=== PATIENT | male | born 1965 | race Caucasian/White ===

== ENCOUNTER 2023-03-15 11:53 | Day surgery (SDC) | payer BC, SELFPAY ==
[2023-03-13 15:31] VITALS: BMI 39.3
--- NOTE | 2023-03-14 09:46 | P.CONAN_ITS ---
Documented by User: Malaika Harden NP 03/14/23 09:47 HPI - Anesthesia Eval Consult details Narrative: 57yo M for Upper Endoscopy [facility] Past Medical History Medical History Chest pain Fatty liver GERD (gastroesophageal reflux disease) HTN (hypertension) Surgical History Surgical History (Updated 03/15/23 @ 13:03 by Gladis Martinez MD) Hx of endoscopy H/O colonoscopy Social History Social History Household Members: Spouse Patient Tobacco Use Status: Former Tobacco user Use of substances other than those prescribed or required for medical reasons: No Are you DNR?: No Advance Directives: No Advance Directives Information Provided: Yes Meds Allergies Allergy/AdvReac Type Severity Reaction Status Date / Time No Known Allergies Allergy Verified 03/13/23 15:31 Home Medications Medication Instructions Recorded Confirmed Last Taken Type amlodipine 5 mg-benazepril 10 mg 1 cap PO DAILY 03/13/23 03/13/23 Unknown History capsule losartan 100 mg tablet 100 mg PO DAILY 03/13/23 03/13/23 Unknown History metoprolol succinate 25 mg 25 mg PO DAILY 03/13/23 03/13/23 Unknown History tablet,extended release 24 hr omeprazole 20 mg capsule,delayed 20 mg PO DAILY 03/13/23 03/13/23 Unknown History release Exam Height,Weight and Vital Signs: Height 5 ft 9 in Weight 120.656 kg Assessment and Plan Assessment Anesthesia Assessment: Chart Reviewed Documented by User: Gladis Martinez MD 03/15/23 13:16 [facility] Active Problems Active Problems: HTN GERD Increased BMI 39.2 Denies BERTIN Past Medical History Medical History Chest pain Fatty liver GERD (gastroesophageal reflux disease) HTN (hypertension) Family History Family history of problems with anesthesia: No Surgical History Surgical History (Updated 03/15/23 @ 13:03 by Gladis Martinez MD) Hx of endoscopy H/O colonoscopy History of Problems with Anesthesia: No Social History Social History Household Members: Spouse Patient Tobacco Use Status: Former Tobacco user Use of substances other than those prescribed or required for medical reasons: No Are you DNR?: No Advance Directives: No Advance Directives Information Provided: Yes Meds Allergies Allergy/AdvReac Type Severity Reaction Status Date / Time No Known Allergies Allergy Verified 03/13/23 15:31 Home Medications Medication Instructions Recorded Confirmed Last Taken Type amlodipine 5 mg-benazepril 10 mg 1 cap PO DAILY 03/13/23 03/13/23 Unknown History capsule losartan 100 mg tablet 100 mg PO DAILY 03/13/23 03/13/23 Unknown History metoprolol succinate 25 mg 25 mg PO DAILY 03/13/23 03/13/23 Unknown History tablet,extended release 24 hr omeprazole 20 mg capsule,delayed 20 mg PO DAILY 03/13/23 03/13/23 Unknown History release Exam Height,Weight and Vital Signs: Height 5 ft 9 in Weight 120.656 kg Vital Signs Temp Pulse Resp BP Pulse Ox O2 Del Method 03/15/23 12:30 99.0 F 90 20 131/70 97 Room Air Airway Mallampati Class: III TM Dist: >3cm Neck ROM: Full Loose/Missing/Broken Teeth: No (Denies broken, loose, missing teeth) Heart: RRR. Loud Lungs: CTAB Assessment and Plan Assessment Anesthesia Assessment: Anesthesia Plan Discussed Final Anesthetic Review Family History of Problems with Anesthesia: No History of Problems with Anesthesia: No NPO: Yes ASA Class: III Final Preanesthetic Review: No Changes in Pt Med Stat, Meds/Allgs Chart Reviewed, Consent Obtained/Reviewed and Anes Risks/Benef Reviewed Patient Risk: Intermediate Procedure Risk: Low Assessment/Block/Sedation in SS: Assess/Block/Sedation-SS Anesthetic Plan Anesthetic Plan: MAC: Disposition: Standard PACU Documented by User: Saroj Oliveira MD 03/16/23 09:12 [facility] Past Medical History Medical History Chest pain Fatty liver GERD (gastroesophageal reflux disease) HTN (hypertension) Surgical History Surgical History (Updated 03/15/23 @ 13:03 by Gladis Martinez MD) Hx of endoscopy H/O colonoscopy Social History Social History Household Members: Spouse Patient Tobacco Use Status: Former Tobacco user Use of substances other than those prescribed or required for medical reasons: No Are you DNR?: No Advance Directives: No Advance Directives Information Provided: Yes Meds Allergies Allergy/AdvReac Type Severity Reaction Status Date / Time No Known Allergies Allergy Verified 03/13/23 15:31 Home Medications Medication Instructions Recorded Confirmed Last Taken Type amlodipine 5 mg-benazepril 10 mg 1 cap PO DAILY 03/13/23 03/13/23 Unknown History capsule losartan 100 mg tablet 100 mg PO DAILY 03/13/23 03/13/23 Unknown History metoprolol succinate 25 mg 25 mg PO DAILY 03/13/23 03/13/23 Unknown History tablet,extended release 24 hr omeprazole 20 mg capsule,delayed 20 mg PO DAILY 03/13/23 03/13/23 Unknown History release Assessment and Plan Anesthetic Plan Anesthetic Plan: Agree w/ Assess. and Plan
[2023-03-15 12:09] VITALS: BMI 39.2
[2023-03-15 12:30] VITALS: BP 131/70; PULSE 90; RESP 20; TEMP 37.2; O2SAT 97
[2023-03-15 12:45] VITALS: BMI 39.2
[2023-03-15] MEDS: Lactated Ringers 1,000 ML 100 ML IVCONT (12:45)
--- NOTE | 2023-03-15 13:07 | MHC.SHP ---
Pre-Procedural Eval Section A Date of Service: 03/15/23 The patient is an INPATIENT: No Changes since office visit: No Cold of Flu in the past 2 weeks, No New Medical Problems, No Changes in Medication and No Patient answered all questions The History & Physical has been completed within 30 days and I have reviewed it.: Yes Section B Chief Complaint: Gastro-esophageal reflux disease without esophagit Allergies: Allergies Allergy/AdvReac Type Severity Reaction Status Date / Time No Known Allergies Allergy Verified 03/13/23 15:31 Plan I have reviewed the history and physical and performed a pertinent physical examination on my patient. No changes have occurred unless specified. Time Spent With Patient Time: Total time managing care of this patient today ____ minutes.
[2023-03-15 13:41] VITALS: BP 114/61; PULSE 94; RESP 20; TEMP 36.8; O2SAT 91
[2023-03-15 13:56] VITALS: BP 131/73; PULSE 89; RESP 20; O2SAT 97
[2023-03-15 14:09] VITALS: BP 120/60; PULSE 77; RESP 20; TEMP 36.9; O2SAT 96
--- NOTE | 2023-03-15 19:20 | OP_ITS ---
DATE OF SERVICE: 03/15/2023 SURGEON: Helio Lin MD INDICATIONS: Gastroesophageal reflux disease. PREOPERATIVE DIAGNOSIS: POSTOPERATIVE DIAGNOSIS: PROCEDURE PERFORMED: Upper endoscopy with biopsy. ESTIMATED BLOOD LOSS: COMPLICATIONS: ANESTHESIA: Monitored anesthesia care. ASSISTANTS: SPECIMENS: DESCRIPTION OF PROCEDURE: A history and physical was performed. The risks and benefits of the procedure were explained to the patient. Informed consent was obtained. The patient was placed in the left lateral decubitus position. The Olympus video gastroscope was introduced into the esophagus, stomach, and duodenum. Examination was performed. The scope was removed. He tolerated the procedure well and was returned to the recovery area in stable condition. FINDINGS: Esophagus: The esophagus showed no esophagitis. No varices were present. There was an irregular EG junction, which was biopsied. Stomach: The stomach showed no evidence of masses or ulcers. There were several benign-appearing polyps in the body and fundus of the stomach, measuring less than 5 mm. Antral biopsies were obtained to rule out H pylori. Duodenum: The bulb and second portion were normal. IMPRESSION: Gastroesophageal reflux disease. RECOMMENDATION: Follow up the biopsy results. MD JORDIN Price/NHAN / [id number]
== END 2023-03-15 14:35 | disposition home or self-care (01) ==
PROVIDERS: PCP Nurse Practitioner Family; Visit Provider Internal Medicine Gastroenterology
PROC: 0DJ08ZZ Inspection of Upper Intestinal Tract, Via Natural or Artificial Opening Endoscopic (ICD-10-PCS; CPT 43235; principal; 2023-03-15 13:00)
DX: K22.10 Ulcer of esophagus without bleeding (principal); D71 Functional disorders of polymorphonuclear neutrophils; K21.9 Gastro-esophageal reflux disease without esophagitis; K22.89 Other specified disease of esophagus; R07.0 Pain in throat; K76.0 Fatty (change of) liver, not elsewhere classified; I10 Essential (primary) hypertension; Z79.899 Other long term (current) drug therapy
CPT/HCPCS: 43239; 88305; 88342; J2250; J2704

== ENCOUNTER 2023-12-06 07:44 | Outpatient (REF) | payer BC, SELFPAY ==
--- NOTE | ~2023-12-06 | CT_ITS ---
EXAMINATION: CT ABDOMEN AND PELVIS WITH CONTRAST CLINICAL INFORMATION: Abnormal abdominal ultrasound COMPARISON: None available. TECHNIQUE: Multidetector volumetric images were obtained from the superior aspect of the liver through the pubic symphysis following administration 85 mL of Omnipaque 350 intravenous contrast. Sagittal and coronal reformatted images were obtained on the technologist's workstation. Oral contrast: Yes This CT examination was performed using dose optimization techniques as appropriate, variously including the following: *Automated exposure control *Adjustment of mA and/or kV according to patient size (this includes techniques or standardized protocols for targeted exams where dose is matched to indication/reason for exam; i.e. extremities or head) *Use of iterative reconstruction technique DLP: 803 mGy-cm FINDINGS: LUNG BASES: The visualized lung bases are unremarkable. LIVER, GALLBLADDER, AND BILIARY TREE: Liver is decreased in density consistent with hepatic steatosis. There is a small calcified stone within the gallbladder. Gallbladder is nondistended. No focal wall thickening, inflammatory stranding PANCREAS: Unremarkable. SPLEEN: Unremarkable. ADRENAL GLANDS: Unremarkable. KIDNEYS AND URETERS: The kidneys are normal in size, shape, and attenuation. No hydronephrosis, hydroureter, or calculi seen. No perinephric stranding. BLADDER: Unremarkable. GASTROINTESTINAL TRACT: The small and large bowel are unremarkable. The appendix is unremarkable. ABDOMINAL WALL: No significant hernia is appreciated. LYMPH NODES: Normal. VASCULAR: Unremarkable. PELVIC VISCERA: Unremarkable. OSSEOUS STRUCTURES: Unremarkable. CT/CT abdomen pelvis w IV con IMPRESSION: 1. No acute process. 2. Hepatic steatosis. 3. Cholelithiasis. Electronically signed by: Obi Sexton MD 12/12/2023 06:18 PM EDT
[2023-12-06] MEDS: Barium Sulfate Oral (Mocha) 450 ML ORAL.SUSP 900 ML PO (10:22)
[2023-12-06] MEDS: iohexoL 350 MG/ML 100 ML INFUS..BTL IV (10:22)
[2023-12-06 14:16] LABS: Creatinine POC 0.8 mg/dL (0.5-1.4); GFR POC > 60
== END 2023-12-06 07:45 | disposition home or self-care (01) ==
LOC: HO.CT 07:44
PROVIDERS: PCP Nurse Practitioner Family; Visit Provider Internal Medicine Gastroenterology
DX: R93.5 Abnormal findings on diagnostic imaging of other abdominal regions, including retroperitoneum (principal)
CPT/HCPCS: 74177; 82565; Q9967

== ENCOUNTER 2024-02-23 06:18 | Day surgery (SDC) | payer BC, SELFPAY ==
[2024-02-21 10:36] VITALS: BMI 39.6
[2024-02-23 06:34] VITALS: BMI 38.2
[2024-02-23 06:39] VITALS: BP 151/81; PULSE 96; RESP 15; TEMP 36.5; O2SAT 93
[2024-02-23] MEDS: Lactated Ringers 1,000 ML 100 ML IVCONT (06:53)
--- NOTE | 2024-02-23 07:13 | P.HPSUR_ITS ---
Pre-Procedural Eval Section A - 24 Hr Update-Section A only Date of Service: 02/23/24 Section B - Complete if H&P > 30 days Chief Complaint: Encounter for screening for malignant neoplasm of Details of Present Illness: see H&P no changes Relevant Family History (Specify if Yes): No Relevant Social History: None Present Medications: see Short Stay Collaborative assessment Medical History: No relevant PMH History of Previous Operations: No relevant previous surgery Allergies: Allergies Allergy/AdvReac Type Severity Reaction Status Date / Time No Known Allergies Allergy Verified 02/23/24 06:32 Review of Systems Sugical H&P ROS: Negative: Constitution, Cardiovascular, Respiratory, Neurological, Psychiatric, Hem-Onc, Allergic/Immunologic, Gastrointestinal, Genitourinary, Musculoskeletal, Integumentary, Endocrine and Eyes/Ears/No se/Throat Exam Surgical H&P Exam: Normal: HEENT, Normal: Heart, Normal: Lungs, Normal: Extremities, Normal: Abdomen, Normal: Skin and Normal: Neurological Plan Diagnosis/Plan: Unchanged I have reviewed the history and physical and performed a pertinent physical examination on my patient. No changes have occurred unless specified. Time Spent With Patient Time: Total time managing care of this patient today ____ minutes.
--- NOTE | 2024-02-23 07:25 | HO.ANESPROP2 ---
Documented by User: Malaika Harden NP 02/22/24 10:11 HPI - Anesthesia Eval Consult details Narrative: 58yo M for Colonoscopy [facility] Past Medical History Medical History Fatty liver GERD (gastroesophageal reflux disease) HTN (hypertension) Family History Family history of problems with anesthesia: No Surgical History Surgical History Hx of endoscopy H/O colonoscopy History of Problems with Anesthesia: No Social History Social History (Updated 02/21/24 @ 10:30 by Portia Strauss RN) Household Members: Spouse Patient Tobacco Use Status: Never used Tobacco Tobacco use type: Cigarette Use of substances other than those prescribed or required for medical reasons: No Are you DNR?: No Advance Directives: No Advance Directives Information Provided: Yes Recently lost weight without trying: No Meds Allergies Allergy/AdvReac Type Severity Reaction Status Date / Time No Known Allergies Allergy Verified 02/23/24 06:32 Home Medications ?Medication ?Instructions ?Recorded ?Confirmed ?Last Taken ?Type amlodipine 5 mg-benazepril 10 mg 1 cap PO DAILY 03/13/23 02/23/24 Unknown History capsule losartan 100 mg tablet 100 mg PO DAILY 03/13/23 02/23/24 Unknown History metoprolol succinate 25 mg 25 mg PO DAILY 03/13/23 02/23/24 Unknown History tablet,extended release 24 hr omeprazole 20 mg capsule,delayed 20 mg PO DAILY 03/13/23 02/23/24 Unknown History release evolocumab 140 mg/mL subcutaneous 140 mg subcut Q2W 02/21/24 02/23/24 Unknown History pen injector (Kasia Cast) Exam Height,Weight and Vital Signs: Height 5 ft 9 in Weight 121.563 kg Assessment and Plan Assessment Anesthesia Assessment: Chart Reviewed Final Anesthetic Review Family History of Problems with Anesthesia: No History of Problems with Anesthesia: No Documented by User: Katelynn Schwartz DO 02/23/24 07:35 [facility] Past Medical History Medical History Fatty liver GERD (gastroesophageal reflux disease) HTN (hypertension) Family History Family history of problems with anesthesia: No Surgical History Surgical History Hx of endoscopy H/O colonoscopy History of Problems with Anesthesia: No Social History Social History (Updated 02/21/24 @ 10:30 by Portia Strauss RN) Household Members: Spouse Patient Tobacco Use Status: Never used Tobacco Tobacco use type: Cigarette Use of substances other than those prescribed or required for medical reasons: No Are you DNR?: No Advance Directives: No Advance Directives Information Provided: Yes Recently lost weight without trying: No Meds Allergies Allergy/AdvReac Type Severity Reaction Status Date / Time No Known Allergies Allergy Verified 02/23/24 06:32 Home Medications ?Medication ?Instructions ?Recorded ?Confirmed ?Last Taken ?Type amlodipine 5 mg-benazepril 10 mg 1 cap PO DAILY 03/13/23 02/23/24 Unknown History capsule losartan 100 mg tablet 100 mg PO DAILY 03/13/23 02/23/24 Unknown History metoprolol succinate 25 mg 25 mg PO DAILY 03/13/23 02/23/24 Unknown History tablet,extended release 24 hr omeprazole 20 mg capsule,delayed 20 mg PO DAILY 03/13/23 02/23/24 Unknown History release evolocumab 140 mg/mL subcutaneous 140 mg subcut Q2W 02/21/24 02/23/24 Unknown History pen injector (Kasia Cast) Exam Exam Date and Time: 02/23/24 0725 Height,Weight and Vital Signs: Height 5 ft 9 in Weight 121.563 kg Height 5 ft 9 in Weight 117.48 kg Vital Signs Temperature 97.7 F 02/23/24 06:39 Pulse Rate 96 02/23/24 06:39 Respiratory Rate 15 02/23/24 06:39 Blood Pressure 151/81 H 02/23/24 06:39 Pulse Oximetry 93 02/23/24 06:39 Oxygen Delivery Method Room Air 02/23/24 06:39 Temperature 97.7 F 02/23/24 06:39 Pulse Rate 96 02/23/24 06:39 Respiratory Rate 15 02/23/24 06:39 Blood Pressure 151/81 H 02/23/24 06:39 Pulse Oximetry 93 02/23/24 06:39 Oxygen Delivery Method Room Air 02/23/24 06:39 Airway Mallampati Class: II TM Dist: >3cm Neck ROM: Full Loose/Missing/Broken Teeth: Yes (multiple broken teeth but nothing loose) Heart: S1S2 Lungs: CTAB Assessment and Plan Assessment Anesthesia Assessment: Anesthesia Plan Discussed and Chart Reviewed Final Anesthetic Review Family History of Problems with Anesthesia: No History of Problems with Anesthesia: No NPO: Yes ASA Class: II Final Preanesthetic Review: No Changes in Pt Med Stat, Meds/Allgs Chart Reviewed, Consent Obtained/Reviewed and Anes Risks/Benef Reviewed Patient Risk: Low Procedure Risk: Low Anesthetic Plan Anesthetic Plan: MAC: and Agree w/ Assess. and Plan Disposition: Standard PACU
[2024-02-23 08:05] VITALS: BP 103/52; PULSE 86; RESP 16; TEMP 36.1; O2SAT 95
[2024-02-23 08:20] VITALS: BP 115/72; PULSE 79; RESP 16; TEMP 36.6; O2SAT 96
--- NOTE | 2024-02-23 08:28 | OP_ITS ---
DATE OF SERVICE: 02/23/2024 SURGEON: Helio Lin MD INDICATIONS: Colon cancer screening. PREOPERATIVE DIAGNOSIS: POSTOPERATIVE DIAGNOSIS: PROCEDURE PERFORMED: Colonoscopy to the terminal ileum with biopsy. ESTIMATED BLOOD LOSS: COMPLICATIONS: ANESTHESIA: Medications, monitored anesthesia care. ASSISTANTS: SPECIMENS: DESCRIPTION OF PROCEDURE: A history and physical was performed. The risks and benefits of the procedure were explained to the patient. Informed consent was obtained. The patient was placed in a left lateral decubitus position. A digital rectal exam was performed and it was found to be normal. The Olympus pediatric video colonoscope was introduced into the rectum and advanced to the cecum. The cecum was identified by transillumination, palpation, identification of ileocecal valve. Examination was performed. The scope was removed. He tolerated the procedure well and was taken to recovery area in stable condition. FINDINGS: The terminal ileum was examined and appeared normal. The visualized colonic mucosa was normal. The quality of the prep was good. In the rectum was a less than 5 mm polyp, which was removed with biopsy forceps. No other polyps were identified. Retroflexed examination showed small internal hemorrhoids. IMPRESSION: Colon polyp. RECOMMENDATION: Follow up the biopsy results. MD JORDIN Price/NHAN / [id number]
== END 2024-02-23 08:50 | disposition home or self-care (01) ==
PROVIDERS: PCP Nurse Practitioner Family; Visit Provider Internal Medicine Gastroenterology
PROC: 0DJD8ZZ Inspection of Lower Intestinal Tract, Via Natural or Artificial Opening Endoscopic (ICD-10-PCS; CPT 45378; principal; 2024-02-23 07:30)
DX: Z12.11 Encounter for screening for malignant neoplasm of colon (principal); Z86.0101 Personal history of adenomatous and serrated colon polyps; K62.1 Rectal polyp; K64.8 Other hemorrhoids; K21.9 Gastro-esophageal reflux disease without esophagitis; I10 Essential (primary) hypertension; K74.69 Other cirrhosis of liver; K76.0 Fatty (change of) liver, not elsewhere classified; Z79.899 Other long term (current) drug therapy
CPT/HCPCS: 45380; 88305; J2003; J2704